=== PATIENT | female | born 2000 | race Caucasian/White ===

== ENCOUNTER 2020-08-02 00:11 | Emergency (ER) | payer OTHER ==
[~2020-08-02] VITALS: Ht 160 cm; Wt 60.6 kg
[2020-08-02 00:14] VITALS: BP 125/55
[2020-08-02] MEDS ORDERED: LIDOCAINE 1%, 10ML INFIL ONE (00:30)
[2020-08-02] MEDS ORDERED: DIPH,PERTUSS(ACELL),TET VAC/PF 0.5 ML IM-VACC ONE ×3 (00:30→00:46)
[2020-08-02] MEDS ORDERED: HYDROcodone/APAP 5/325 TABLET PO ONE (00:30)
--- NOTE | 2020-08-02 00:30 | NUR ---
pt ambulated to room. no acute distress. has left hand thumb wrapped in 4x4, with mild bleeding, to top of nail bed.
[2020-08-02] MEDS ORDERED: LIDOCAINE-MPF 1%, 5ML ONE (00:43)
[2020-08-02] MEDS ORDERED: HYDROcodone/APAP 5/325 TABLET ONE (00:43)
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
[2020-08-02] MEDS ORDERED: AMOXICILLIN/CLAV 875-125MG TABLET PO ONE (01:00)
[2020-08-02] MEDS ORDERED: NEOSPORIN OINT. PKT 1 PACKET ONE (01:38)
--- NOTE | 2020-08-02 01:45 | NUR ---
left thumb numbed with medication and cleaned and thumbnail repositioned. pt tolerated well.
--- NOTE | 2020-08-02 01:46 | NUR ---
tetanus shot given, and pain meds administered prior to I&D of thumb injury. cleaned and bacitracin placed to L thumb and dressed with kerlix. no active bleeding noted. f/u and d/c instructions given to pt and she v/u.
== END 2020-08-02 02:05 | disposition home or self-care (01) ==
LOC: ED 00:41
DX: S61.012A Laceration without foreign body of left thumb without damage to nail, initial encounter (principal); Y08.89XA Assault by other specified means, initial encounter; Y93.89 Activity, other specified; Y92.59 Other trade areas as the place of occurrence of the external cause; Y99.8 Other external cause status
CPT/HCPCS: 64450; 90471; 90715; 99284